=== PATIENT | female | born 1975 | race Caucasian/White ===

== ENCOUNTER 2016-10-28 10:55 | Emergency (ER) ==
[2016-10-28] MEDS ORDERED: DILAUDID IV ONE ×3 (11:17→14:23)
[2016-10-28] MEDS ORDERED: ZOFRAN IV ONE ×3 (11:17→14:23)
[2016-10-28] MEDS ORDERED: NS 1,000 ML IV ONE ×2 (11:18→12:37)
[2016-10-28 11:46] LABS: BASO% 0.1 % (0.0-0.8); HEMATOCRIT 37.9 % (37.0-47.0); HEMOGLOBIN 12.7 g/dL (12.0-16.0); IMM GRAN# 0.03 X1000 (0.0-0.04); IMM GRAN% 0.2 % (0.0-0.5); LYMPH# 0.64 X1000 (1.2-3.4); LYMPH% 4.2 % (20.5-51.1); MANUAL DIFF NEEDED? NO; MCH 30.2 PG (27-31); MCHC 33.5 g/dL (33-37); MCV 90.2 FL (81-99); MONO# 1.07 X1000 (0.11-0.59); MPV 10.9 FL (7.4-10.4); NEUT% 88.5 % (42.2-75.2); PLT 307 X1000 (130-400)
[2016-10-28 12:04] LABS: AGAP 15; ALBUMIN 4.4 g/dL (3.5-5.0); ALKALINE PHOSPHATASE 90 U/L (32-104); BUN 8 mg/dL (8-22); CHLORIDE 98 mmol/L (98-107); COSMO 268; GOT 16 U/L (10-30); GPT 20 U/L (10-36); POTASSIUM 3.1 mmol/L (3.5-5.1); SODIUM 134 mmol/L (136-145); TCO2 21 mmol/L (25-35); TOTAL PROTEIN 7.2 g/dL (6.3-8.3)
[2016-10-28 12:22] LABS: URINE SOURCE CLEAN CATCH
[2016-10-28 12:29] LABS: BILIRUBIN URINE NEGATIVE (NEGATIVE); BLOOD URINE 4+ (NEGATIVE); CLARITY SL. CLOUDY (CLEAR); COLOR YELLOW; GLUCOSE URINE NEGATIVE (NEGATIVE); LEUKOCYTES URINE 2+ (NEGATIVE); NITRITE URINE NEGATIVE (NEGATIVE); PROTEIN URINE NEGATIVE (NEGATIVE); SP GRAVITY URINE 1.015; UROBILINOGEN URINE NORMAL
[2016-10-28 12:34] LABS: URINE CULTURE PL NEEDED? YES; URINE EPITHELIAL CELLS <10 /HPF (<10); URINE RBC 20-40 /HPF (<10); URINE WBC TNTC /HPF (<10)
[2016-10-28] MEDS ORDERED: TYLENOL PO ONE (14:19)
[2016-10-28] MEDS ORDERED: TYLENOL ONE (14:20)
[2016-10-28] MEDS ORDERED: ROCEPHIN 1 GM/NS 50 ML IV ONE (14:23)
--- NOTE | 2016-10-28 14:27 | PROVIDER DOCUMENTATION ---
HPI-Female /OB/Breast - General Chief Complaint: General Adult Stated Complaint: FLANK/ABD/BACK PAIN,FEVER Time Seen by Provider: 10/28/16 11:08 Source: reports: patient, family Allergies/Adverse Reactions: Patient Allergies Allergy/AdvReac Type Severity Reaction Status Date / Time No Known Allergies Allergy Verified 08/17/15 17:56 Home Medications: Home Medication List Medication Instructions Recorded Confirmed Last Taken Type Methylprednisolone [Medrol Dosepak] 4 mg PO DIRECTED #1 package 08/17/15 Unknown Rx Phenylephrine HCl/Cod/Prometh 5 ml PO Q6-8H PRN PRN #1 syrup 08/17/15 Unknown Rx [Phenergan Vc-Codeine Syrup] Amoxicillin/Pot Clavulanate 875 mg PO Q12HR #14 tablet 09/23/16 Unknown Rx [Augmentin] Methylprednisolone [Medrol Dosepak] 4 mg PO DIRECTED #1 package 09/23/16 Unknown Rx Famotidine [Pepcid] 20 mg PO DAILY #20 tablet 10/28/16 Unknown Rx Hydrocodone/APAP 7.5 mg/325 mg 1 each PO Q6H PRN PRN #20 tablet 10/28/16 Unknown Rx [Car[place]unk-7.5] Ibuprofen [Motrin] 800 mg PO Q8H PRN PRN #20 tablet 10/28/16 Unknown Rx Levofloxacin [Levaquin] 750 mg PO DAILY #10 tablet 10/28/16 Unknown Rx Past History - Adult - PAST MEDICAL HISTORY-ADULT Major Childhood Illnesses: reports: denies history Cardiovascular: reports: denies history Respiratory: reports: denies history Gastrointestinal: reports: denies history Obstetrical/Gynecological: reports: denies history Genitourinary: reports: kidney stones Musculoskeletal: reports: denies history Neurological: reports: denies history Endocrine/Immune: reports: denies history Other Conditions: reports: denies history - PRIOR SURGERIES/PROCEDURES Surgical/Procedure History: reports: reviewed, not pertinent - IMMUNIZATION STATUS Childhood Immunizations: See Nurse Assessment Flu Vaccine: See Nurse Assessment - FAMILY HISTORY Family History: reviewed, not pertinent Physical Exam-General - PHYSICAL EXAM-ADULT Initial Vital Signs Reviewed: Yes - CONSTITUTIONAL General Appearance: appears well, alert, moderate distress, obese. negative: no apparent distress, mild distress, severe distress, lethargic, slow to respond , obtunded, combative - EYES Eyes: pink conjunctivae. negative: conjuctival exudate - HEAD, EARS, NOSE, MOUTH & THROAT HENMT: normocephalic/atraumatic, moist mucous membranes, normal ENT inspection, TMs normal. negative: frontal tenderness, maxillary tenderness - NECK Neck: non-tender, full range of motion, supple, normal inspection. negative: C- spine tenderness, limited range of motion, tender lateral, tender midline - RESPIRATORY Respiratory: chest non-tender, lungs clear, normal breath sounds, no pleuratic chest pain, no respiratory distress, no accessory muscle use. negative: respiratory distress, decreased breath sounds, accessory muscle use, crackles, rales, rhonchi, stridor, wheezing - CARDIOVASCULAR Cardiovascular: normal peripheral pulses, regular rate, rhythm, no edema, no gallop, no JVD, tachycardia - CHEST (BREASTS) Chest/Breast: deferred - GASTROINTESTINAL (ABDOMEN) Abdominal Exam: normal bowel sounds, non tender, soft, no organomegaly. negative: distended, guarding, rigid, rebound, tenderness, hernia, mass, hepatomegaly, spleenomegaly, McBurney's point tenderness, Asif's sign, obturator sign, psoas, Rovsing's sign - GENITOURINARY Female Genitalia/Pelvic Exam: deferred Rectal Exam: deferred Hemoccult Exam: deferred Progress - PLAN OF CARE/RESULTS Progress/Plan/Lab Results: Laboratory Tests 10/28/16 10/28/16 10/28/16 11:30 11:30 11:30 WBC 15.36 H RBC 4.20 Hgb 12.7 Hct 37.9 MCV 90.2 MCH 30.2 MCHC 33.5 RDW Std Deviation 14.3 Plt Count 307 MPV 10.9 H Immature Gran % (Auto) 0.2 Neut % (Auto) 88.5 H Lymph % (Auto) 4.2 L Bath % (Auto) 7.0 Eos % (Auto) 0.0 Baso % (Auto) 0.1 Immature Gran # (Auto) 0.03 Neut # (Auto) 13.60 H Lymph # (Auto) 0.64 L Bath # (Auto) 1.07 H Eos # (Auto) 0.00 Baso # (Auto) 0.02 D-Dimer 0.50 Sodium 134 L Potassium 3.1 L Chloride 98 Carbon Dioxide 21 L Anion Gap 15 BUN 8 Creatinine 0.5 Estimated GFR/1.73 m2 > 60 BUN/Creatinine Ratio 16 Glucose 120 H Calculated Osmolality 268 Calcium 9.0 Total Bilirubin 0.50 AST 16 ALT 20 Alkaline Phosphatase 90 Total Protein 7.2 Albumin 4.4 Globulin 3.0 Albumin/Globulin Ratio 2.0 Plasma Lactate Urine Source Urine Color Urine Clarity Urine pH Ur Specific [place] Urine Protein Urine Ketones Urine Blood Urine Nitrite Urine Bilirubin Urine Urobilinogen Urine Microscopic RBC Urine WBC Urine Microscopic WBC Ur Epithelial Cells Urine Bacteria Urine Glucose 10/28/16 10/28/16 11:35 12:17 WBC RBC Hgb Hct MCV MCH MCHC RDW Std Deviation Plt Count MPV Immature Gran % (Auto) Neut % (Auto) Lymph % (Auto) Bath % (Auto) Eos % (Auto) Baso % (Auto) Immature Gran # (Auto) Neut # (Auto) Lymph # (Auto) Bath # (Auto) Eos # (Auto) Baso # (Auto) D-Dimer Sodium Potassium Chloride Carbon Dioxide Anion Gap BUN Creatinine Estimated GFR/1.73 m2 BUN/Creatinine Ratio Glucose Calculated Osmolality Calcium Total Bilirubin AST ALT Alkaline Phosphatase Total Protein Albumin Globulin Albumin/Globulin Ratio Plasma Lactate 0.7 Urine Source CLEAN CATCH Urine Color YELLOW Urine Clarity SL. CLOUDY A Urine pH 6.0 Ur Specific [place] 1.015 Urine Protein NEGATIVE Urine Ketones 3+(Large) A Urine Blood 4+ Urine Nitrite NEGATIVE Urine Bilirubin NEGATIVE Urine Urobilinogen NORMAL Urine Microscopic RBC 20-40 A Urine WBC 2+ A Urine Microscopic WBC TNTC A Ur Epithelial Cells <10 Urine Bacteria 2+ Urine Glucose NEGATIVE Orders Category Date Time Status Saline Loc NOW Care 10/28/16 11:09 Active CHEST-2 VIEWS [RAD] Stat Exams 10/28/16 11:09 Completed RENAL STONE SEARCH [CT] Stat Exams 10/28/16 12:37 Completed BLOOD CULTURE [BLDCUL] Stat Lab 10/28/16 11:30 Results CBC WITH DIFF [HEME] Stat Lab 10/28/16 11:30 Completed COMPREHENSIVE METABOLIC PANEL [CHEM] Stat Lab 10/28/16 11:30 Completed Ddimer [D-DIMER PL] [COAG] Stat Lab 10/28/16 11:30 Completed LACTATE, PLASMA [CHEM] Stat Lab 10/28/16 11:[address] W/POSS RFLX CULT [URINALYSIS] Stat Lab 10/28/16 12:17 Completed URINE CULTURE [RM] Routine Lab 10/28/16 12:17 Results 0.9% Sodium Chloride Inj [Ns] 1,000 ml Med 10/28/16 11:18 Discontinued IV 999 mls/hr 0.9% Sodium Chloride Inj [Ns] 1,000 ml Med 10/28/16 12:37 Discontinued IV 999 mls/hr Acetaminophen [Tylenol] Med 10/28/16 14:20 Discontinued 650 mg .ROUTE .STK-MED ONE Acetaminophen [Tylenol] Med 10/28/16 14:19 Discontinued 650 mg PO NOW ONE CefTRIAXONE 1 GM/NS [Rocephin 1 gm/Ns] 50 ml Med 10/28/16 14:23 Discontinued IV NOW Hydromorphone [Dilaudid] Med 10/28/16 11:17 Discontinued 0.5 mg IV NOW ONE Hydromorphone [Dilaudid] Med 10/28/16 12:39 Discontinued 1 mg IV NOW ONE Hydromorphone [Dilaudid] Med 10/28/16 14:23 Discontinued 1 mg IV NOW ONE Ibuprofen [Motrin] Med 10/28/16 15:31 Discontinued 800 mg .ROUTE .STK-MED ONE Ondansetron [Zofran] Med 10/28/16 11:17 Discontinued 4 mg IV NOW ONE Ondansetron [Zofran] Med 10/28/16 12:39 Discontinued 4 mg IV NOW ONE Ondansetron [Zofran] Med 10/28/16 14:23 Discontinued 4 mg IV NOW ONE Pulse Oximetry Stat Oth 10/28/16 11:09 Active Reviewed case with Dr. Yates, we both agree admission is advised. Upon speaking with patient, she refuses admission and is requesting outpatient treatment. I advised the patient to return to the ED immediately for any new or concerning symptoms. Departure - Departure Time of Disposition Order: 14:24 DIAGNOSIS: Kidney calculus, Staghorn calculus UTI (urinary tract infection) Qualifiers: Urinary tract infection type: acute cystitis Hematuria presence: with hematuria Qualified Code(s): N30.01 - Acute cystitis with hematuria Disposition: HOME 01 Certified Medical Emergency: Emergent Condition: Stable Additional Instructions: Follow up with Dr. Vargas, the urologist to address your kidney stone. ED Follow Up Instructions: You have been treated by a care provider in the Emergency Department. These instructions are being provided to you so you can have an understanding of how to care for yourself upon discharge. Upon discharge from the Emergency Department, you are responsible for making arrangements for follow-up care by a physician of your choice. Take all prescribed medications as directed. Return to the Emergency Department immediately for any new or worsening symptoms. You may call the Physician Referral phone number at [phone] to obtain a list of Physicians who are taking new patients. Prescriptions: Levofloxacin [Levaquin] 750 mg PO DAILY #10 tablet Ibuprofen [Motrin] 800 mg PO Q8H PRN PRN #20 tablet PRN Reason: inflammation Hydrocodone/APAP 7.5 mg/325 mg [[place]-7.5] 1 each PO Q6H PRN PRN #20 tablet PRN Reason: Pain Famotidine [Pepcid] 20 mg PO DAILY #20 tablet Referrals: Sheldon Cleary MD [Primary Care Provider] - Forms: Return to School/Parent Work Instructions: Famotidine tablets or gelcaps, Ibuprofen tablets and capsules, Urinary Tract Infection, Levofloxacin tablets Attestation - Physician/ ANA Attestation Patient care was provided by Advanced Practice Provider:: Yes Advanced Practice Provider:: Camila Glover Advanced Practice Provider documentation review:: The Mid-level provider documentation, treatment plan and medical decision making was reviewed by the physician who agrees with all treatment and medical decision making by the MLP.
--- NOTE | 2016-10-28 14:36 | Diag Imaging Result Document ---
PROCEDURE NAME: RENAL STONE SEARCH - 10/28/2016 CT RENAL STONE SEARCH WITHOUT CONTRAST: A dose-reduction protocol was used. COMPARISON: 12/03/2012. FINDINGS: There is a large staghorn-type stone in the [id number] left kidney. There is mild distention of the upper pole collecting system of the left kidney, and there is mild left perinephric edema. There is no other obstructing renal stone identified. There is no hydroureter identified. There is an additional tiny nonobstructing stone at the upper left kidney. There is a possible tiny nonobstructing stone at the upper right kidney. There is no right hydronephrosis. There is no evidence of bowel obstruction. The appendix is unremarkable. There is no free air. There are no calcified gallstones seen. IMPRESSION: Large staghorn stone in mid to upper left kidney. Mild hydronephrosis at the upper left kidney, with mild left perinephric edema.
[2016-10-28 15:28] VITALS: BP 114/69
--- NOTE | 2016-10-28 15:29 | Diag Imaging Result Document ---
PROCEDURE NAME: CHEST-2 VIEWS - 10/28/2016 CHEST, 2 VIEWS: COMPARISON: 08/17/2015. FINDINGS: Heart size is normal. There are right upper lobe granuloma and calcified right hilar lymph nodes from old granulomatous disease which are stable. There is no consolidation, pleural effusion, or pneumothorax identified. IMPRESSION: No evidence of acute disease.
[2016-10-28] MEDS ORDERED: MOTRIN ONE (15:31)
== END 2016-10-28 15:32 | disposition home or self-care (01) ==
LOC: P.ED 10:55
DX: N13.2 Hydronephrosis with renal and ureteral calculous obstruction (principal); N30.01 Acute cystitis with hematuria; R10.9 Unspecified abdominal pain; M54.9 Dorsalgia, unspecified; R50.9 Fever, unspecified; E66.9 Obesity, unspecified; Z87.442 Personal history of urinary calculi
CPT/HCPCS: 71020; 74176; 80053; 81001; 83605; 85025; 85379; 87040; 87077; 87088; 87186; 96361; 96365; 96375; 96376; J0696; J1170; J2405; J7030